=== PATIENT | female | born 1940 | race Native Hawaiian/Other Pacific Islander ===

== ENCOUNTER 2020-05-18 22:42 | Emergency (ER) | payer OTHER ==
[~2020-05-18] VITALS: Ht 157.5 cm; Wt 66.7 kg
[2020-05-18 22:47] VITALS: BP 152/69; TEMP 98.1
[2020-05-18 23:12] LABS: PLATELET COUNT 283 K/uL (152-353)
[2020-05-18 23:22] LABS: POTASSIUM 4.1 mmol/L (3.6-5.2)
[2020-05-19] MEDS ORDERED: VITAMIN PO (02:25)
[2020-05-19] MEDS ORDERED: CALCIUM PO (02:25)
[2020-05-19] MEDS ORDERED: [UNRECOGNIZED DRUG - OTHER] PO (02:29)
[2020-05-19] MEDS ORDERED: DIVA250T2 PO (02:30)
[2020-05-19] MEDS ORDERED: RIVADIS4 TOP (02:32)
[2020-05-19] MEDS ORDERED: FISH OIL1000 M1 PO (02:38)
[2020-05-19] MEDS ORDERED: MELATONIN1 MG PO (02:39)
[2020-05-19] MEDS ORDERED: LEXAPRO10 MG PO (02:39)
[2020-05-19] MEDS ORDERED: MIRTAZAPINE7.5 MG PO (02:40)
[2020-05-19] MEDS ORDERED: MEMA5TAB PO (02:41)
[2020-05-19] MEDS ORDERED: MEMA10TA2 PO (02:42)
[2020-05-19] MEDS ORDERED: TAMOXIFEN20 MG PO (02:43)
[2020-05-19] MEDS ORDERED: HALO5INJ3 IM (02:45)
[2020-05-19] MEDS ORDERED: CLON0.5T36 PO (02:46)
[2020-05-19] MEDS ORDERED: ANTI-DIARRHE2 MG PO (02:47)
== END 2020-05-19 00:10 | disposition still patient (30) ==
LOC: ED 22:42
PROVIDERS: Hospitalist
DX: F03.91 Unspecified dementia, unspecified severity, with behavioral disturbance (principal); Z11.52 Encounter for screening for COVID-19; Z04.6 Encounter for general psychiatric examination, requested by authority
CPT/HCPCS: 36415; 80053; 85027; 87635; 93005; 96372; 99283; J0696; U0003